=== PATIENT | female | born 1960 | race Caucasian/White ===

== ENCOUNTER → 2016-11-15 | Outpatient (CLI) | payer BC ==
[~2016-11-15] VITALS: Ht 157.5 cm; Wt 81.6 kg
[~2016-11-15] MED LIST: EFFE150C PO; MAGN500C PO; MELO7.5T6 PO; NS 1,000 ML IV SCH; PRAV10TA PO; PROPOFOL 200 MG/20 ML VIAL As Ordered ONE; TRAZ50TA4 PO
--- NOTE | 2016-11-15 10:03 | ROOR ---
Patient Name: Elba Olson Procedure Date: 11/15/2016 9:23 AM Date of : 1960 Age: 56 Room: [facility] Gender: Female Note Status: Finalized Procedure: Colonoscopy Indications: Screening in patient at increased risk: Colorectal cancer in mother 60 or older, Screening in patient at increased risk: Colorectal cancer in sister 60 or older Providers: Kevin AVILES MD Referring MD: NATALEE ROCHA DO Requesting Provider: Medicines: Monitored Anesthesia Care Complications: No immediate complications. Procedure: Pre-Anesthesia Assessment: - The heart rate, respiratory rate, oxygen saturations, blood pressure, adequacy of pulmonary ventilation, and response to care were monitored throughout the procedure. The Colonoscope was introduced through the anus and advanced to the cecum, identified by appendiceal orifice and ileocecal valve. The colonoscopy was performed without difficulty. The patient tolerated the procedure well. The quality of the bowel preparation was good. Findings: The perianal and digital rectal examinations were normal. Three sessile polyps were found in the sigmoid colon. The polyps were diminutive in size. These polyps were removed with a cold snare. Resection and retrieval were complete. Multiple diverticula were found in the sigmoid colon. Internal hemorrhoids were found during retroflexion. The hemorrhoids were small. (EXAM: Complete, PREP: Fair/Adequate) Impression: - (EXAM: Complete, PREP: Fair/Adequate) - Three diminutive polyps in the sigmoid colon, removed with a cold snare. Resected and retrieved. - Diverticulosis in the sigmoid colon. - Internal hemorrhoids. - The exam was otherwise normal to the cecum. Recommendation: - Repeat colonoscopy in 3 years for surveillance. Kevin Aviles MD Kevin AVILES MD 11/15/2016 10:02:38 AM This report has been signed electronically. Number of Addenda: 0 Note Initiated On: 11/15/2016 9:23 AM Estimated Blood Loss: Estimated blood loss: none.
[2016-11-15 10:04] VITALS: BP 116/71
== END ==
LOC: M OPP 09:08
PROVIDERS: ATTEND Internal Medicine Gastroenterology
DX: Z12.11 Encounter for screening for malignant neoplasm of colon (principal); Z80.0 Family history of malignant neoplasm of digestive organs; D12.5 Benign neoplasm of sigmoid colon; K57.30 Diverticulosis of large intestine without perforation or abscess without bleeding; K64.8 Other hemorrhoids; Z72.0 Tobacco use; M19.90 Unspecified osteoarthritis, unspecified site; F32.9 Major depressive disorder, single episode, unspecified; E78.5 Hyperlipidemia, unspecified; Z79.899 Other long term (current) drug therapy; Z88.8 Allergy status to other drugs, medicaments and biological substances; Z91.013 Allergy to seafood

== ENCOUNTER → 2017-05-05 | Outpatient (CLI) | payer BC ==
[~2017-05-05] MED LIST changes: -MELO7.5T6 PO; +MELO7.5T7 PO; -NS 1,000 ML IV SCH; -PRAV10TA PO; +PRAV10TA4 PO; -PROPOFOL 200 MG/20 ML VIAL As Ordered ONE; +TRAZ50TA11 PO; -TRAZ50TA4 PO
--- NOTE | 2017-05-06 02:22 | REP ---
Clinical: Pain. Technique: Internal rotation, external rotation, and Y view. Findings: Cortical irregularity and inferior spurring along the acromioclavicular joint suggest early moderate degenerative changes. Glenohumeral joint is relatively normal for age. No periarticular calcifications are identified. The subacromial space is normal. Impression: Early moderate degenerative changes primarily involving the acromioclavicular joint along with inferior spurring. Signed by Ramon Lee MD 05/06/2017 02:13 A
== END ==
LOC: M CLY 09:49
PROVIDERS: ATTEND Family Medicine
DX: M19.012 Primary osteoarthritis, left shoulder (principal); M25.512 Pain in left shoulder

== ENCOUNTER → 2017-10-10 | Outpatient (REF) | payer BC ==
[2017-10-10 11:42] LABS: ALBUMIN 2.9 GM/DL (3.2-5.2); ALBUMIN/GLOBULIN RATIO 0.85 (1.00-1.93); ALKALINE PHOSPHATASE 64 U/L (45-117); ALT/SGPT 10 U/L (12-78); ANION GAP 7 MEQ/L (8-16); AST/SGOT 14 U/L (7-37); BILIRUBIN,TOTAL 0.3 MG/DL (0.2-1.0); BLOOD UREA NITROGEN 5 MG/DL (7-18); CALCIUM LEVEL 8.5 MG/DL (8.5-10.1); CARBON DIOXIDE LEVEL 29 MEQ/L (21-32); CHLORIDE LEVEL 109 MEQ/L (98-107); CREATININE FOR GFR 0.69 MG/DL (0.55-1.02); GLOMERULAR FILTRATION RATE > 60.0 (>51); GLUCOSE, FASTING 111 MG/DL (70-105); POTASSIUM SERUM 3.9 MEQ/L (3.5-5.1); SODIUM LEVEL 145 MEQ/L (136-145); TOTAL PROTEIN 6.3 GM/DL (6.4-8.2)
[2017-10-10 12:11] LABS: BASO # 0.1 10^3/uL (0.0-0.2); BASO % 0.8 % (0.0-1.0); EOS # 0.2 10^3/uL (0.0-0.50); EOS % 1.9 % (0.0-3.0); HEMATOCRIT 38.5 % (36.0-47.0); HEMOGLOBIN 12.8 g/dl (12.0-16.0); IMMATURE GRANULOCYTE % 0.3 % (0-0); LYMPH # 3.9 10^3/uL (1.5-4.5); LYMPH % 43.6 % (24.0-44.0); MEAN CORPUSCULAR HEMOGLOBIN 30.7 pg (27.0-33.0); MEAN CORPUSCULAR HGB CONC 33.2 g/dl (32.0-36.5); MEAN CORPUSCULAR VOLUME 92.3 fl (80.0-96.0); MONO # 0.7 10^3/uL (0.0-0.8); MONO % 7.7 % (0.0-5.0); NEUTROPHILS # 4.1 10^3/uL (1.8-7.7); NEUTROPHILS % 45.7 % (36.0-66.0); PLATELET COUNT, AUTOMATED 434 10^3/uL (150-450); RED BLOOD COUNT 4.17 10^6/uL (4.00-5.40); RED CELL DISTRIBUTION WIDTH 14.5 % (11.5-14.5)
== END ==
LOC: M SFHCCLAY 07:31
DX: K57.92 Diverticulitis of intestine, part unspecified, without perforation or abscess without bleeding (principal)
CPT/HCPCS: 80053

== ENCOUNTER → 2018-01-19 | Outpatient (CLI) | payer BC | LOC: M CLY 10:19 | DX: S92.515A Nondisplaced fracture of proximal phalanx of left lesser toe(s), initial encounter for closed fracture (principal); X58.XXXA Exposure to other specified factors, initial encounter; Y92.89 Other specified places as the place of occurrence of the external cause | CPT/HCPCS: 73660 ==

== ENCOUNTER → 2018-06-19 | Outpatient (REF) | payer BC | LOC: M SFHCCLAY 17:16 | DX: D23.5 Other benign neoplasm of skin of trunk (principal) | CPT/HCPCS: 88305 ==

== ENCOUNTER → 2018-06-30 | Outpatient (REF) | payer BC ==
[2018-06-30 19:03] LABS: ALBUMIN/GLOBULIN RATIO 1.11 (1.00-1.93); ALKALINE PHOSPHATASE 72 U/L (45-117); ALT/SGPT 17 U/L (12-78); ANION GAP 10 MEQ/L (8-16); AST/SGOT 11 U/L (7-37); BILIRUBIN,TOTAL 0.3 MG/DL (0.2-1.0); BLOOD UREA NITROGEN 14 MG/DL (7-18); C REACTIVE PROTEIN QUANTITATIV 0.81 MG/DL (0.00-0.30); CALCIUM LEVEL 9.7 MG/DL (8.8-10.2); CARBON DIOXIDE LEVEL 28 MEQ/L (21-32); CHLORIDE LEVEL 102 MEQ/L (98-107); CHOLESTEROL LEVEL 172 MG/DL (<200); CREATININE FOR GFR 0.75 MG/DL (0.55-1.30); GLOMERULAR FILTRATION RATE > 60.0 (>45); GLUCOSE, FASTING 78 MG/DL (70-100); HDL CHOLESTEROL 49 MG/DL (>40); LDL CHOLESTEROL 95 MG/DL (<100); MAGNESIUM LEVEL 2.2 MG/DL (1.8-2.4); NON-HDL-C 123 MG/DL; POTASSIUM SERUM 4.6 MEQ/L (3.5-5.1); RHEUMATOID FACTOR QUANT < 10.0 IU/ML (<15.0); SODIUM LEVEL 140 MEQ/L (136-145); THYROID STIMULATING HORMONE 0.593 uIU/ML (0.358-3.740); THYROXINE (T4) 10.9 UG/DL (4.5-12.0); TOTAL PROTEIN 7.6 GM/DL (6.4-8.2); TRIGLYCERIDES LEVEL 140 MG/DL (<150)
[2018-06-30 19:29] LABS: ERYTHROCYTE SEDIMENTATION RATE 20 mm/hr (0-30)
[2018-07-03 00:06] LABS: CYCLIC CITRULLINATED PEPTIDE 6 units (0-19)
[2018-07-03 00:06] LABS: ANA (HEP2) Negative (.)
== END ==
LOC: M SFHCCLAY 11:08
DX: E78.5 Hyperlipidemia, unspecified (principal); M79.1 Myalgia; E66.9 Obesity, unspecified; M25.50 Pain in unspecified joint
CPT/HCPCS: 83735

== ENCOUNTER → 2019-07-09 | Outpatient (CLI) | payer OTHER ==
[~2019-07-09] MED LIST changes: -EFFE150C PO; +EFFE150C2 PO; +TRAZ-252 PO; -TRAZ50TA11 PO
--- NOTE | 2019-07-09 14:21 | REP ---
Right thumb series: Four views. History: Pain in the right thumb. Findings: Four views right thumb demonstrate soft tissue swelling about the middle and distal phalanges. There is mild osteoarthritic spurring at the IP joint and mild spurring is seen at the metacarpal carpal articulation. No fracture is seen. No erosive changes noted. Impression: Mild osteoarthritic changes. No acute bony abnormality. Electronically Signed by Javi Veliz MD 07/09/2019 02:13 P
== END ==
LOC: M CLY 10:28
PROVIDERS: ATTEND Family Medicine
DX: M19.041 Primary osteoarthritis, right hand (principal)

== ENCOUNTER → 2019-07-09 | Outpatient (REF) | payer OTHER ==
[2019-07-09 17:22] LABS: ALBUMIN 3.5 GM/DL (3.2-5.2); ALT/SGPT 16 U/L (12-78); BILIRUBIN,TOTAL 0.3 MG/DL (0.2-1.0); BLOOD UREA NITROGEN 14 MG/DL (7-18); CALCIUM LEVEL 9.2 MG/DL (8.8-10.2); CARBON DIOXIDE LEVEL 27 MEQ/L (21-32); CHLORIDE LEVEL 109 MEQ/L (98-107); CHOLESTEROL LEVEL 178 MG/DL (<200); CHOLESTEROL RISK RATIO 3.955 (<5); CREATININE FOR GFR 0.79 MG/DL (0.55-1.30); GLOMERULAR FILTRATION RATE > 60.0 (>45); GLUCOSE, FASTING 84 MG/DL (70-100); HDL CHOLESTEROL 45 MG/DL (>40); LDL CHOLESTEROL 99 MG/DL (<100); NON-HDL-C 133 MG/DL; POTASSIUM SERUM 4.7 MEQ/L (3.5-5.1); SODIUM LEVEL 142 MEQ/L (136-145); TOTAL PROTEIN 7.2 GM/DL (6.4-8.2); TRIGLYCERIDES LEVEL 170 MG/DL (<150)
== END ==
LOC: M SFHCCLAY 10:05
PROVIDERS: ATTEND Family Medicine
DX: E78.5 Hyperlipidemia, unspecified (principal)

== ENCOUNTER → 2020-07-18 | Outpatient (REF) | payer OTHER ==
[2020-07-18 14:29] LABS: ALBUMIN 3.9 GM/DL (3.2-5.2); ALT/SGPT 15 U/L (12-78); BILIRUBIN,TOTAL 0.4 MG/DL (0.2-1.0); BLOOD UREA NITROGEN 13 MG/DL (7-18); CALCIUM LEVEL 9.7 MG/DL (8.8-10.2); CARBON DIOXIDE LEVEL 28 MEQ/L (21-32); CHLORIDE LEVEL 105 MEQ/L (98-107); CHOLESTEROL LEVEL 236 MG/DL (<200); CHOLESTEROL RISK RATIO 4.627 (<5); CREATININE FOR GFR 0.84 MG/DL (0.55-1.30); GLOMERULAR FILTRATION RATE > 60.0 (>45); GLUCOSE, FASTING 91 MG/DL (70-100); HDL CHOLESTEROL 51 MG/DL (>40); LDL CHOLESTEROL 153 MG/DL (<100); NON-HDL-C 185 MG/DL; POTASSIUM SERUM 4.9 MEQ/L (3.5-5.1); SODIUM LEVEL 139 MEQ/L (136-145); TOTAL PROTEIN 7.8 GM/DL (6.4-8.2); TRIGLYCERIDES LEVEL 161 MG/DL (<150)
== END ==
LOC: M SFHCCLAY 08:24
PROVIDERS: ATTEND Family Medicine
DX: E78.5 Hyperlipidemia, unspecified (principal)

== ENCOUNTER → 2021-06-08 | Outpatient (REF) | payer OTHER | LOC: M SFHCCLAY 08:24 | PROVIDERS: ATTEND Physician Assistant | DX: R39.11 Hesitancy of micturition (principal) ==

== ENCOUNTER 2021-06-21 19:56 | Emergency (ER) | payer OTHER ==
[~2021-06-21] VITALS: Ht 160 cm; Wt 84.5 kg
[2021-06-21 19:57] VITALS: BP 182/92
[2021-06-21] MEDS ORDERED: OXYC1TAB23 (20:08)
== END 2021-06-21 20:09 | disposition left against medical advice (07) ==
LOC: M ED 19:56
DX: Z53.21 Procedure and treatment not carried out due to patient leaving prior to being seen by health care provider (principal)

== ENCOUNTER → 2021-07-16 | Outpatient (REF) | payer OTHER ==
[~2021-07-16] MED LIST changes: +OXYC1TAB23
[2021-07-17 11:59] LABS: BASO # 0.1 10^3/uL (0.0-0.2); BASO % 0.9 % (0.0-1.0); EOS # 0.1 10^3/uL (0.0-0.5); EOS % 0.9 % (0.0-3.0); HEMATOCRIT 43.8 % (36.0-47.0); HEMOGLOBIN 14.2 g/dl (12.0-15.5); LYMPH # 4.9 10^3/uL (1.5-5.0); LYMPH % 48.3 % (24.0-44.0); MEAN CORPUSCULAR HEMOGLOBIN 30.5 pg (27.0-33.0); MEAN CORPUSCULAR HGB CONC 32.4 g/dl (32.0-36.5); MONO # 0.8 10^3/uL (0.0-0.8); MONO % 7.7 % (2.0-8.0); NEUTROPHILS # 4.3 10^3/uL (1.5-8.5); PLATELET COUNT, AUTOMATED 383 10^3/uL (150-450); RED BLOOD COUNT 4.66 10^6/uL (4.00-5.40); WHITE BLOOD COUNT 10.1 10^3/uL (4.0-10.0)
[2021-07-17 12:25] LABS: ALBUMIN 3.4 GM/DL (3.2-5.2); ALT/SGPT 12 U/L (12-78); BILIRUBIN,TOTAL 0.3 MG/DL (0.2-1.0); BLOOD UREA NITROGEN 13 MG/DL (7-18); CALCIUM LEVEL 9.8 MG/DL (8.8-10.2); CARBON DIOXIDE LEVEL 29 MEQ/L (21-32); CHLORIDE LEVEL 109 MEQ/L (98-107); CHOLESTEROL LEVEL 204 MG/DL (<200); GLOMERULAR FILTRATION RATE > 60.0 (>45); GLUCOSE, FASTING 78 MG/DL (70-100); HDL CHOLESTEROL 48 MG/DL (>40); LDL CHOLESTEROL 115 MG/DL (<100); NON-HDL-C 156 MG/DL; POTASSIUM SERUM 4.5 MEQ/L (3.5-5.1); SODIUM LEVEL 143 MEQ/L (136-145); TOTAL PROTEIN 7.1 GM/DL (6.4-8.2); TRIGLYCERIDES LEVEL 203 MG/DL (<150)
== END ==
LOC: M SFHCCLAY 14:36
PROVIDERS: ATTEND Family Medicine
DX: E78.5 Hyperlipidemia, unspecified (principal)

== ENCOUNTER → 2022-02-20 | Outpatient (CLI) | payer OTHER ==
[~2022-02-20] MED LIST changes: +LORA-674; +MELO7.5T35; +OYST500C PO; +RA M500C PO
== END ==
LOC: M LABSMTC 10:37
PROVIDERS: ATTEND Anesthesiology
DX: Z01.812 Encounter for preprocedural laboratory examination (principal)

== ENCOUNTER 2022-02-25 08:14 | Day surgery (SDC) | payer OTHER ==
[~2022-02-25] VITALS: Ht 160 cm; Wt 87.5 kg
[~2022-02-25 08:14] MED LIST changes: +LIDOCAINE 2% 100MG/5ML SDV (FOR ANES.) As Ordered ONE; +NS 1,000 ML IV ONE; +propofoL 200 MG/20 ML VIAL As Ordered ONE
[2022-02-25] MEDS ORDERED: ONDANSETRON 4MG/2ML VIAL As Ordered ONE (09:20)
[2022-02-25 10:02] VITALS: BP 136/61
== END 2022-02-25 18:02 | disposition home or self-care (01) ==
LOC: M OPP 08:14
PROVIDERS: ATTEND Internal Medicine Gastroenterology
DX: Z12.11 Encounter for screening for malignant neoplasm of colon (principal); Z86.010 Personal history of colon polyps; Z80.0 Family history of malignant neoplasm of digestive organs; K63.5 Polyp of colon; K57.30 Diverticulosis of large intestine without perforation or abscess without bleeding; K64.8 Other hemorrhoids; D58.0 Hereditary spherocytosis; Z79.02 Long term (current) use of antithrombotics/antiplatelets; Z79.899 Other long term (current) drug therapy; Z88.8 Allergy status to other drugs, medicaments and biological substances; Z91.013 Allergy to seafood
CPT/HCPCS: 45385; 88305; J2405

== ENCOUNTER → 2022-05-14 | Outpatient (REF) | payer OTHER ==
[~2022-05-14] MED LIST changes: -LIDOCAINE 2% 100MG/5ML SDV (FOR ANES.) As Ordered ONE; -NS 1,000 ML IV ONE; -propofoL 200 MG/20 ML VIAL As Ordered ONE
[2022-05-14 17:20] LABS: BASO # 0.1 10^3/uL (0.0-0.2); BASO % 1.1 % (0.0-1.0); EOS # 0.1 10^3/uL (0.0-0.5); EOS % 1.2 % (0.0-3.0); HEMOGLOBIN 14.8 g/dl (12.0-15.5); LYMPH # 4.3 10^3/uL (1.5-5.0); LYMPH % 44.2 % (24.0-44.0); MEAN CORPUSCULAR HEMOGLOBIN 30.8 pg (27.0-33.0); MEAN CORPUSCULAR HGB CONC 33.6 g/dl (32.0-36.5); MEAN CORPUSCULAR VOLUME 91.5 fl (80.0-96.0); MONO # 0.7 10^3/uL (0.0-0.8); MONO % 7.3 % (2.0-8.0); NEUTROPHILS # 4.4 10^3/uL (1.5-8.5); NEUTROPHILS % 45.8 % (36.0-66.0); PLATELET COUNT, AUTOMATED 348 10^3/uL (150-450); RED BLOOD COUNT 4.81 10^6/uL (4.00-5.40); WHITE BLOOD COUNT 9.7 10^3/uL (4.0-10.0)
[2022-05-14 18:00] LABS: ERYTHROCYTE SEDIMENTATION RATE 8 mm/hr (0-30)
[2022-05-14 20:53] LABS: ALBUMIN 3.4 GM/DL (3.2-5.2); ALT/SGPT 13 U/L (12-78); BILIRUBIN,TOTAL 0.2 MG/DL (0.2-1.0); BLOOD UREA NITROGEN 16 MG/DL (7-18); CARBON DIOXIDE LEVEL 27 MEQ/L (21-32); CHLORIDE LEVEL 107 MEQ/L (98-107); CHOLESTEROL LEVEL 173 MG/DL (<200); CREATININE FOR GFR 0.83 MG/DL (0.55-1.30); GLOMERULAR FILTRATION RATE > 60.0 (>45); GLUCOSE, FASTING 89 MG/DL (70-100); HDL CHOLESTEROL 49 MG/DL (>40); LDL CHOLESTEROL 100 MG/DL (<100); NON-HDL-C 124 MG/DL; POTASSIUM SERUM 5.2 MEQ/L (3.5-5.1); RHEUMATOID FACTOR QUANT < 10.0 IU/ML (<15.0); SODIUM LEVEL 137 MEQ/L (136-145); TRIGLYCERIDES LEVEL 120 MG/DL (<150); URIC ACID 5.6 MG/DL (2.6-6.0)
== END ==
LOC: M SFHCCLAY 09:23
PROVIDERS: ATTEND Family Medicine
DX: E78.5 Hyperlipidemia, unspecified (principal); M79.642 Pain in left hand; M79.641 Pain in right hand; M25.50 Pain in unspecified joint

== ENCOUNTER → 2022-12-23 | Outpatient (CLI) | payer OTHER | LOC: M CLY 13:31 | PROVIDERS: ATTEND Family Medicine | DX: M25.561 Pain in right knee (principal) ==

== ENCOUNTER → 2023-06-05 | Outpatient (CLI) | payer BC, MEDICARE | LOC: M SOG 10:26 | PROVIDERS: ATTEND Orthopaedic Surgery | DX: M17.12 Unilateral primary osteoarthritis, left knee (principal) ==

== ENCOUNTER 2023-07-24 06:33 | Observation (INO) | payer MEDICARE ==
[~2023-07-24] VITALS: Ht 160 cm; Wt 96.7 kg
[~2023-07-24 06:33] MED LIST changes: +LORA-1041 PO; -LORA-674; -MELO7.5T35; +MELO7.5T35 PO
[2023-07-24 07:02] LABS: BASO # 0.1 10^3/uL (0.0-0.2); BASO % 0.7 % (0.0-1.0); EOS # 0.2 10^3/uL (0.0-0.5); EOS % 1.7 % (0.0-3.0); HEMATOCRIT 43.7 % (36.0-47.0); HEMOGLOBIN 14.9 g/dl (12.0-15.5); LYMPH # 3.9 10^3/uL (1.5-5.0); LYMPH % 36.6 % (24.0-44.0); MEAN CORPUSCULAR HEMOGLOBIN 30.7 pg (27.0-33.0); MEAN CORPUSCULAR HGB CONC 34.1 g/dl (32.0-36.5); MEAN CORPUSCULAR VOLUME 90.1 fl (80.0-96.0); MONO # 0.6 10^3/uL (0.0-0.8); MONO % 5.8 % (2.0-8.0); NEUTROPHILS # 5.9 10^3/uL (1.5-8.5); PLATELET COUNT, AUTOMATED 389 10^3/uL (150-450); RED BLOOD COUNT 4.85 10^6/uL (4.00-5.40); WHITE BLOOD COUNT 10.8 10^3/uL (4.0-10.0)
[2023-07-24] MEDS ORDERED: NITROGLYCERIN 0.4MG SUBL TABLET SL PRN (07:15)
[2023-07-24] MEDS ORDERED: ONDANSETRON 4MG 2ML VIAL IV ONE (07:15)
[2023-07-24 07:38] LABS: CPK CREATINE PHOSPHOKINASE 86 U/L (34-145); LIPASE 104 U/L (12-53)
[2023-07-24 07:44] LABS: ALBUMIN 3.4 G/DL (3.2-5.2); ALKALINE PHOSPHATASE 75 U/L (46-116); ALT/SGPT 15 U/L (7.0-40); AST/SGOT 29 U/L (<34); BILIRUBIN,DIRECT < 0.1 MG/DL (<0.4); BILIRUBIN,TOTAL 0.3 MG/DL (0.3-1.2); BLOOD UREA NITROGEN 11 MG/DL (9-23); CALCIUM LEVEL 8.4 MG/DL (8.3-10.6); CARBON DIOXIDE LEVEL 22 MMOL/L (20-31); CHLORIDE LEVEL 109 MMOL/L (98-107); CK-MB VALUE MASS < 1.0 NG/ML (<3.6); CREATININE FOR GFR 0.61 MG/DL (0.55-1.30); GLOMERULAR FILTRATION RATE > 60.0 (>45); GLUCOSE, FASTING 145 MG/DL (74-106); MB/CK RELATIVE INDEX 1.16 (< OR =4); POTASSIUM SERUM 4.3 MMOL/L (3.5-5.1); SODIUM LEVEL 141 MMOL/L (136-145); TOTAL PROTEIN 6.5 G/DL (5.7-8.2)
[2023-07-24] MEDS: MORPHINE 4 MG/ML 1ML VIAL IV PRN ×2 (07:49→08:36)
[2023-07-24 08:12] LABS: CK-MB VALUE MASS 1.4 NG/ML (<3.6)
[2023-07-24 08:14] LABS: MB/CK RELATIVE INDEX 1.81 (< OR =4)
[2023-07-24] MEDS ORDERED: diphenhydrAMINE 50MG/ML VIAL IV STA (08:21)
[2023-07-24] MEDS ORDERED: methylPREDNISolone 125MG 2ML VIAL IV ONE (08:25)
[2023-07-24] MEDS: PRAVASTATIN 10 MG TAB PO SCH (09:00)
[2023-07-24] MEDS ORDERED: ISOVUE-370 76% 100ML VIAL As Ordered ONE (09:16)
[2023-07-24] MEDS ORDERED: MED REC IN PROGRESS XX SCH (10:45)
[2023-07-24] MEDS ORDERED: VENL150C43 PO (10:54)
[2023-07-24] MEDS ORDERED: FLUT50SP17 NARES (10:54)
[2023-07-24] MEDS ORDERED: HOME MED LIST COMPLETE! XX SCH (11:00)
[2023-07-24] MEDS ORDERED: FLUTICASONE PROP 0.05% NASAL SPRAY 16 GM (FLONASE) NARES PRN (14:05)
[2023-07-24] MEDS ORDERED: MOM 30ML SUSPENSION UDC PO PRN (14:05)
[2023-07-24] MEDS: VENLAFAXINE **XR** 75MG CAPSULE PO SCH (14:26)
[2023-07-24] MEDS: MAGNESIUM OXIDE 400MG TAB (MAG-OX) PO SCH (14:26)
[2023-07-24] MEDS: LORATADINE 10 MG TAB PO SCH (14:26)
[2023-07-24 15:43] LABS: INR 1.02; PARTIAL THROMBOPLASTIN TIME 24.2 SECONDS (24.8-34.2); PROTHROMBIN TIME 13.1 SECONDS (12.5-14.5)
[2023-07-24 16:05] VITALS: BP 119/72; TEMP 97.9; O2SAT 93
[2023-07-24] MEDS: RIVAROXABAN 10MG TAB (XARELTO) PO SCH (17:22)
[2023-07-24 20:11] VITALS: BP 122/50; TEMP 98.6; O2SAT 92
[2023-07-24] MEDS: DOCUSATE SODIUM 100MG CAPSULE PO SCH (21:00)
[2023-07-24] MEDS: MELOXICAM (MOBIC) 7.5 MG TAB PO SCH (21:32)
[2023-07-24] MEDS: ACETAMINOPHEN TAB 650MG DOSE (2X325MG) PO PRN (21:36)
[2023-07-24] MEDS: traZODone 50 MG TAB PO PRN (21:36)
[2023-07-24 21:37] VITALS: BP_SYST 133; BP_SYST 137; BP_SYST 142; BP_DIAS 62; BP_DIAS 70; BP_DIAS 75
[2023-07-25] VITALS (11 sets, daily range): BP systolic 123–188; BP diastolic 59–100; TEMP 96.8–98.2; O2SAT 88–97
[2023-07-25 05:44] LABS: HEMATOCRIT 41.3 % (36.0-47.0); HEMOGLOBIN 14.1 g/dl (12.0-15.5); MEAN CORPUSCULAR HEMOGLOBIN 30.7 pg (27.0-33.0); MEAN CORPUSCULAR HGB CONC 34.1 g/dl (32.0-36.5); PLATELET COUNT, AUTOMATED 350 10^3/uL (150-450); RED BLOOD COUNT 4.59 10^6/uL (4.00-5.40); WHITE BLOOD COUNT 20.1 10^3/uL (4.0-10.0)
[2023-07-25] MEDS ORDERED: NITROGLYCERIN 0.4MG SUBL TABLET As Ordered ONE (07:25)
[2023-07-25] MEDS: NITROGLYCERIN 0.4MG SUBL TABLET SL PRN ×2 (07:29→07:37)
[2023-07-25] MEDS ORDERED: PREVNAR-20 VACCINE 0.5ML SYRINGE IM.IMMUN ONE (09:00)
[2023-07-25] MEDS ORDERED: SIMETHICONE 80MG CHEW TAB PO PRN (09:05)
[2023-07-25] MEDS ORDERED: ALPRAZolam 0.25 MG TAB PO ONE (09:05)
[2023-07-25] MEDS ORDERED: CALCIUM CARBONATE 500 MG CHEW U/D PO ONE (09:05)
[2023-07-25] MEDS: MAGNESIUM OXIDE 400MG TAB (MAG-OX) PO SCH (09:43)
[2023-07-25] MEDS: VENLAFAXINE **XR** 75MG CAPSULE PO SCH (09:43)
[2023-07-25] MEDS: PRAVASTATIN 10 MG TAB PO SCH (09:43)
[2023-07-25] MEDS: LORATADINE 10 MG TAB PO SCH (09:43)
[2023-07-25] MEDS: DOCUSATE SODIUM 100MG CAPSULE PO SCH ×2 (09:43→20:16)
[2023-07-25] MEDS: RIVAROXABAN 10MG TAB (XARELTO) PO SCH (09:43)
[2023-07-25] MEDS: PANTOPRAZOLE 40MG TAB (PROTONIX) PO SCH (09:46)
[2023-07-25] MEDS: MELOXICAM (MOBIC) 7.5 MG TAB PO SCH (12:41)
[2023-07-25] MEDS: ACETAMINOPHEN TAB 650MG DOSE (2X325MG) PO PRN (14:51)
[2023-07-25 18:41] LABS: BASO % 0.2 % (0.0-1.0); LYMPH # 3.9 10^3/uL (1.5-5.0); LYMPH % 19.6 % (24.0-44.0); MONO # 1.4 10^3/uL (0.0-0.8); NEUTROPHILS # 14.4 10^3/uL (1.5-8.5); NEUTROPHILS % 72.8 % (36.0-66.0)
[2023-07-25 19:34] LABS: ATYPICAL LYMPH 1 % (0-5); LYMPHOCYTES 20 % (16-44); MONOCYTES 9 % (0-5); NEUTROPHILS 70 % (28-66); NUCLEATED RED BLOOD CELL 1 % (0-0)
[2023-07-25 19:36] LABS: ANISOCYTOSIS 1+; PLATELET ESTIMATE NORMAL (NORMAL)
[2023-07-25] MEDS: traZODone 50 MG TAB PO PRN (20:18)
[2023-07-25] MEDS ORDERED: KETOROLAC 30 MG/ML 1ML VIAL IV ONE (21:00)
[2023-07-26 05:44] VITALS: BP 134/72; TEMP 97.5; O2SAT 93
[2023-07-26 06:36] LABS: BASO # 0.1 10^3/uL (0.0-0.2); BASO % 0.5 % (0.0-1.0); EOS % 0.3 % (0.0-3.0); HEMATOCRIT 41.8 % (36.0-47.0); HEMOGLOBIN 14.2 g/dl (12.0-15.5); LYMPH # 4.6 10^3/uL (1.5-5.0); LYMPH % 33.7 % (24.0-44.0); MEAN CORPUSCULAR HEMOGLOBIN 30.3 pg (27.0-33.0); MEAN CORPUSCULAR VOLUME 89.1 fl (80.0-96.0); MONO # 1.2 10^3/uL (0.0-0.8); MONO % 8.8 % (2.0-8.0); NEUTROPHILS # 7.6 10^3/uL (1.5-8.5); NEUTROPHILS % 56.3 % (36.0-66.0); PLATELET COUNT, AUTOMATED 357 10^3/uL (150-450); RED BLOOD COUNT 4.69 10^6/uL (4.00-5.40); WHITE BLOOD COUNT 13.6 10^3/uL (4.0-10.0)
[2023-07-26 08:00] VITALS: BP 136/68; TEMP 97.7; O2SAT 94
[2023-07-26] MEDS: LORATADINE 10 MG TAB PO SCH (09:10)
[2023-07-26] MEDS: RIVAROXABAN 10MG TAB (XARELTO) PO SCH (09:10)
[2023-07-26] MEDS: VENLAFAXINE **XR** 75MG CAPSULE PO SCH (09:11)
[2023-07-26] MEDS: MAGNESIUM OXIDE 400MG TAB (MAG-OX) PO SCH (09:11)
[2023-07-26] MEDS: PANTOPRAZOLE 40MG TAB (PROTONIX) PO SCH (09:11)
[2023-07-26] MEDS: PRAVASTATIN 10 MG TAB PO SCH (09:11)
[2023-07-26] MEDS: DOCUSATE SODIUM 100MG CAPSULE PO SCH (09:12)
[2023-07-26] MEDS ORDERED: PANT40TA29 PO (10:06)
[2023-07-26] MEDS ORDERED: ACET1TAB55 PO (10:06)
[2023-07-26] MEDS ORDERED: SIME80TA16 PO (10:06)
[2023-07-26] MEDS ORDERED: LIDO5DIS41 TOP (10:06)
[2023-07-26] MEDS ORDERED: MIRA3350 PO (10:07)
[2023-07-26 11:43] LABS: BLOOD UREA NITROGEN 11 MG/DL (7-21); CALCIUM LEVEL 9.6 MG/DL (8.8-10.2); CARBON DIOXIDE LEVEL 23 MEQ/L (22-30); CHLORIDE LEVEL 105 MEQ/L (98-107); CREATININE FOR GFR 0.6 MG/DL (0.7-1.5); GLOMERULAR FILTRATION RATE > 60.0 (>45); GLUCOSE, FASTING 106 MG/DL; POTASSIUM SERUM 3.9 MEQ/L (3.6-5.0); SODIUM LEVEL 142 MEQ/L (134-153)
== END 2023-07-26 11:32 | disposition home or self-care (01) ==
LOC: EDBD 06:33 → M ED 06:33 → M ED INP 14:02 → M MSPAV 16:14
PROVIDERS: ADMIT Student in an Organized Health Care Education/Training Program; ATTEND Student in an Organized Health Care Education/Training Program
DX: R07.89 Other chest pain (principal); R74.8 Abnormal levels of other serum enzymes; D72.828 Other elevated white blood cell count; K76.0 Fatty (change of) liver, not elsewhere classified; N20.0 Calculus of kidney; K57.10 Diverticulosis of small intestine without perforation or abscess without bleeding; R10.13 Epigastric pain; E78.5 Hyperlipidemia, unspecified; R06.02 Shortness of breath; N95.1 Menopausal and female climacteric states; R61 Generalized hyperhidrosis; F32.A Depression, unspecified; J30.9 Allergic rhinitis, unspecified; E66.9 Obesity, unspecified; Z88.8 Allergy status to other drugs, medicaments and biological substances; Z91.013 Allergy to seafood; Z79.899 Other long term (current) drug therapy; Z87.891 Personal history of nicotine dependence; Z83.3 Family history of diabetes mellitus; Z82.49 Family history of ischemic heart disease and other diseases of the circulatory system
CPT/HCPCS: 36415; 71045; 71046; 71275; 74177; 80047; 80048; 80053; 80076; 82550; 82553; 83690; 84484; 85025; 85027; 85610; 85730; 87635; 90677; 93005; 93041; 94760; 96374; 96375; 97116; 97161; 97530; 99285; G0009; G0378; J1200; J1885; J2405; J2930; Q9967

== ENCOUNTER → 2023-12-29 | Outpatient (CLI) | payer MEDICARE, OTHER ==
[~2023-12-29] MED LIST changes: +ACET1TAB55 PO; -EFFE150C2 PO; +EFFE150C3 PO; +FLUTISP NARES; +LIDO5DIS41 TOP; +MIRA3350 PO; +PANT40TA29 PO; +SIME80TA16 PO; +VENL150C43 PO
== END ==
LOC: M PLAIMG 13:46
PROVIDERS: ATTEND Family Medicine
DX: G40.909 Epilepsy, unspecified, not intractable, without status epilepticus (principal)

== ENCOUNTER → 2024-02-17 | Outpatient (CLI) | payer MEDICARE, OTHER | LOC: M CLY 14:49 | PROVIDERS: ATTEND Family Medicine | DX: M19.042 Primary osteoarthritis, left hand (principal); M79.622 Pain in left upper arm ==

== ENCOUNTER → 2024-03-16 | Outpatient (CLI) | payer MEDICARE ==
[2024-03-16 18:01] LABS: HEMATOCRIT 45.4 % (36.0-47.0); HEMOGLOBIN 15.3 g/dl (12.0-15.5); MEAN CORPUSCULAR HEMOGLOBIN 30.9 pg (27.0-33.0); MEAN CORPUSCULAR HGB CONC 33.7 g/dl (32.0-36.5); MEAN CORPUSCULAR VOLUME 91.7 fl (80.0-96.0); PLATELET COUNT, AUTOMATED 421 10^3/uL (150-450); RED BLOOD COUNT 4.95 10^6/uL (4.00-5.40); WHITE BLOOD COUNT 10.6 10^3/uL (4.0-10.0)
[2024-03-16 18:26] LABS: THYROID STIMULATING HORMONE 0.596 uIU/ML (0.55-4.78)
[2024-03-16 18:28] LABS: FREE T4 1.09 NG/DL (0.89-1.76)
[2024-03-16 18:30] LABS: ALBUMIN 3.6 G/DL (3.2-5.2); ALKALINE PHOSPHATASE 94 U/L (46-116); ALT/SGPT 20 U/L (7.0-40); AST/SGOT 10 U/L (<34); BILIRUBIN,TOTAL 0.4 MG/DL (0.3-1.2); BLOOD UREA NITROGEN 10 MG/DL (9-23); CALCIUM LEVEL 9.5 MG/DL (8.3-10.6); CARBON DIOXIDE LEVEL 27 MMOL/L (20-31); CHLORIDE LEVEL 105 MMOL/L (98-107); CREATININE FOR GFR 0.75 MG/DL (0.55-1.30); GLOMERULAR FILTRATION RATE > 60.0 (>45); GLUCOSE, FASTING 112 MG/DL (74-106); IRON (FE) 109 UG/DL (50-170); POTASSIUM SERUM 4.7 MMOL/L (3.5-5.1); SODIUM LEVEL 139 MMOL/L (136-145)
[2024-03-16 18:34] LABS: ATYPICAL LYMPH 8 % (0-5); BASOPHILS 2 % (0-1); LYMPHOCYTES 40 % (16-44); MONOCYTES 5 % (0-5); NEUTROPHILS 45 % (28-66)
[2024-03-16 18:36] LABS: PLATELET ESTIMATE NORMAL (NORMAL)
== END ==
LOC: M PLALAB 15:16
PROVIDERS: ATTEND Family Medicine
DX: R06.02 Shortness of breath (principal); E07.9 Disorder of thyroid, unspecified; D50.9 Iron deficiency anemia, unspecified

== ENCOUNTER → 2024-08-25 | Outpatient (CLI) | payer MEDICARE ==
[2024-08-25 15:11] LABS: BASO # 0.1 10^3/uL (0.0-0.2); EOS # 0.1 10^3/uL (0.0-0.5); EOS % 0.9 % (0.0-3.0); HEMATOCRIT 45.2 % (36.0-47.0); HEMOGLOBIN 15.1 g/dl (12.0-15.5); LYMPH # 4.9 10^3/uL (1.5-5.0); LYMPH % 45.7 % (24.0-44.0); MEAN CORPUSCULAR HEMOGLOBIN 31.1 pg (27.0-33.0); MEAN CORPUSCULAR HGB CONC 33.4 g/dl (32.0-36.5); MONO # 0.7 10^3/uL (0.0-0.8); MONO % 6.1 % (2.0-8.0); NEUTROPHILS # 4.9 10^3/uL (1.5-8.5); NEUTROPHILS % 45.9 % (36.0-66.0); PLATELET COUNT, AUTOMATED 363 10^3/uL (150-450); RED BLOOD COUNT 4.86 10^6/uL (4.00-5.40); WHITE BLOOD COUNT 10.6 10^3/uL (4.0-10.0)
[2024-08-25 15:26] LABS: INR 0.95; PARTIAL THROMBOPLASTIN TIME 26.9 SECONDS (24.8-34.2); PROTHROMBIN TIME 12.9 SECONDS (12.5-14.5)
[2024-08-25 15:40] LABS: ALBUMIN 3.6 G/DL (3.2-5.2); ALKALINE PHOSPHATASE 83 U/L (35-104); ALT/SGPT 16 U/L (7.0-40); AST/SGOT 13 U/L (<34); BILIRUBIN,TOTAL 0.4 MG/DL (0.3-1.2); BLOOD UREA NITROGEN 10 MG/DL (9-23); CALCIUM LEVEL 9.9 MG/DL (8.3-10.6); CARBON DIOXIDE LEVEL 29 MMOL/L (20-31); CHLORIDE LEVEL 103 MMOL/L (98-107); CREATININE FOR GFR 0.82 MG/DL (0.55-1.30); GLOMERULAR FILTRATION RATE > 60.0 (>45); GLUCOSE, FASTING 81 MG/DL (74-106); IRON (FE) 94 UG/DL (50-170); POTASSIUM SERUM 4.9 MMOL/L (3.5-5.1); SODIUM LEVEL 138 MMOL/L (136-145); TOTAL IRON BINDING CAPACITY 303 UG/DL (250-425); TOTAL PROTEIN 7.3 G/DL (5.7-8.2)
[2024-08-25 15:41] LABS: CPK CREATINE PHOSPHOKINASE 101 U/L (34-145)
[2024-08-25 15:42] LABS: FERRITIN 51.7 NG/ML (7.3-270.7)
== END ==
LOC: M PLALAB 12:43
PROVIDERS: ATTEND Orthopaedic Surgery
DX: Z01.818 Encounter for other preprocedural examination (principal); D50.9 Iron deficiency anemia, unspecified

== ENCOUNTER → 2024-09-14 | Outpatient (REF) | payer MEDICARE ==
[2024-09-14 11:57] LABS: HEMATOCRIT 46.7 % (36.0-47.0); HEMOGLOBIN 15.6 g/dl (12.0-15.5); MEAN CORPUSCULAR HEMOGLOBIN 30.5 pg (27.0-33.0); MEAN CORPUSCULAR HGB CONC 33.4 g/dl (32.0-36.5); MEAN CORPUSCULAR VOLUME 91.4 fl (80.0-96.0); PLATELET COUNT, AUTOMATED 297 10^3/uL (150-450); RED BLOOD COUNT 5.11 10^6/uL (4.00-5.40); WHITE BLOOD COUNT 8.5 10^3/uL (4.0-10.0)
[2024-09-14 12:23] LABS: ALBUMIN 3.9 G/DL (3.2-5.2); ALKALINE PHOSPHATASE 81 U/L (35-104); ALT/SGPT 14 U/L (7.0-40); AST/SGOT 11 U/L (<34); BILIRUBIN,TOTAL 0.4 MG/DL (0.3-1.2); BLOOD UREA NITROGEN 9 MG/DL (9-23); CARBON DIOXIDE LEVEL 29 MMOL/L (20-31); CHLORIDE LEVEL 104 MMOL/L (98-107); CREATININE FOR GFR 0.73 MG/DL (0.55-1.30); GLOMERULAR FILTRATION RATE > 60.0 (>45); GLUCOSE, FASTING 105 MG/DL (74-106); POTASSIUM SERUM 4.5 MMOL/L (3.5-5.1); SODIUM LEVEL 140 MMOL/L (136-145); TOTAL PROTEIN 7.3 G/DL (5.7-8.2)
== END ==
LOC: M SFHCCLAY 09:00
PROVIDERS: ATTEND Family Medicine
DX: E78.5 Hyperlipidemia, unspecified (principal)

== ENCOUNTER → 2025-01-11 | Outpatient (CLI) | payer MEDICARE ==
[~2025-01-11] MED LIST changes: +ARIP1TAB10 PO; +LETR2.5T2 PO; +NYST1POW3 TOP
== END ==
LOC: M ONCR 13:01
PROVIDERS: ATTEND General Practice
DX: C50.412 Malignant neoplasm of upper-outer quadrant of left female breast (principal); Z98.890 Other specified postprocedural states; Z17.0 Estrogen receptor positive status [ER+]; Z17.21 Progesterone receptor positive status; Z17.32 Human epidermal growth factor receptor 2 negative status; Z90.710 Acquired absence of both cervix and uterus; Z90.81 Acquired absence of spleen; Z80.0 Family history of malignant neoplasm of digestive organs; Z80.3 Family history of malignant neoplasm of breast; Z87.891 Personal history of nicotine dependence; Z91.013 Allergy to seafood; Z91.048 Other nonmedicinal substance allergy status; Z79.51 Long term (current) use of inhaled steroids; Z79.899 Other long term (current) drug therapy

== ENCOUNTER → 2025-01-25 | Outpatient (REF) | payer MEDICARE | LOC: M SFHCCLAY 13:59 | PROVIDERS: ATTEND Family Medicine | DX: S21.002D Unspecified open wound of left breast, subsequent encounter (principal) ==

== ENCOUNTER → 2025-01-25 | Outpatient (CLI) | payer MEDICARE | LOC: M WHC 10:44 | PROVIDERS: ATTEND Specialist | DX: M81.0 Age-related osteoporosis without current pathological fracture (principal) ==

== ENCOUNTER 2025-01-26 07:43 | Outpatient (RCR) | payer MEDICARE | END 2025-02-02 | LOC: M ONCR 07:43 → EEVIPCON 07:43 | PROVIDERS: ATTEND General Practice | DX: Z51.0 Encounter for antineoplastic radiation therapy (principal); C50.412 Malignant neoplasm of upper-outer quadrant of left female breast ==

== ENCOUNTER 2025-06-14 08:18 | Day surgery (SDC) | payer MEDICARE ==
[~2025-06-14] VITALS: Ht 160 cm; Wt 78.0 kg
[~2025-06-14 08:18] MED LIST changes: +LIDO1ADH93 TOP; -LIDO5DIS41 TOP; +PRAV10TA PO; -PRAV10TA4 PO
[2025-06-14] MEDS ORDERED: GLYCOPYRROLATE INJ 0.2 MG/ML 2 ML VIAL As Ordered ONE (10:22)
[2025-06-14 10:23] VITALS: TEMP 97.4
[2025-06-14 10:44] VITALS: BP 143/76; O2SAT 98
== END 2025-06-14 10:46 | disposition home or self-care (01) ==
LOC: M OPP 08:18
PROVIDERS: ATTEND Internal Medicine Gastroenterology
DX: D12.3 Benign neoplasm of transverse colon (principal); K63.89 Other specified diseases of intestine; K57.30 Diverticulosis of large intestine without perforation or abscess without bleeding; K64.8 Other hemorrhoids; Z86.0100 Personal history of colon polyps, unspecified; Z80.0 Family history of malignant neoplasm of digestive organs; Z91.013 Allergy to seafood; Z91.048 Other nonmedicinal substance allergy status; Z79.51 Long term (current) use of inhaled steroids; Z79.899 Other long term (current) drug therapy
CPT/HCPCS: 45385; 88305; J1596

== ENCOUNTER → 2025-08-04 | Outpatient (CLI) | payer MEDICARE | LOC: M CLY 15:47 | PROVIDERS: ATTEND Family Medicine | DX: Z53.9 Procedure and treatment not carried out, unspecified reason (principal) ==

== ENCOUNTER → 2025-08-09 | Outpatient (CLI) | payer MEDICARE | LOC: M PLAIMG 11:37 | PROVIDERS: ATTEND Family Medicine | DX: M25.511 Pain in right shoulder (principal); M19.011 Primary osteoarthritis, right shoulder ==

== ENCOUNTER → 2025-08-23 | Outpatient (CLI) | payer MEDICARE | LOC: M ONCR 08:41 | PROVIDERS: ATTEND General Practice | DX: M75.111 Incomplete rotator cuff tear or rupture of right shoulder, not specified as traumatic (principal); C50.412 Malignant neoplasm of upper-outer quadrant of left female breast; Z92.3 Personal history of irradiation; Z98.890 Other specified postprocedural states; Z79.811 Long term (current) use of aromatase inhibitors; Z87.891 Personal history of nicotine dependence; Z91.013 Allergy to seafood; Z91.048 Other nonmedicinal substance allergy status; Z79.51 Long term (current) use of inhaled steroids; Z79.899 Other long term (current) drug therapy; Z17.0 Estrogen receptor positive status [ER+]; Z17.21 Progesterone receptor positive status; Z17.32 Human epidermal growth factor receptor 2 negative status ==